=== PATIENT | female | born 1960 | race African-American/Black ===

== ENCOUNTER 2018-05-22 10:41 | Emergency (ER) | payer MEDICAID ==
[~2018-05-22] VITALS: Ht 177.8 cm; Wt 88.0 kg
[2018-05-22 13:05] LABS: BASOPHILS % 0.6 % (0.0-2.0); EOSINOPHILS % 0.4 % (0.0-5.0); HEMATOCRIT. 37.2 % (36.0-48.0); HEMOGLOBIN. 12.2 g/dL (12.0-16.0); LYMPHOCYTES % 30.9 % (20.0-50.0); MEAN CORPUSCULAR HEMOGLOBIN 29.5 pg (28.0-32.0); MEAN CORPUSCULAR VOLUME 89.9 fL (81.0-99.0); MONOCYTES % 4.7 % (2.0-8.0); NEUTROPHILS % 63.4 % (40.0-76.0); PLATELET 319 x1000/uL (130-400); RED BLOOD CELL COUNT 4.14 mill/uL (4.2-5.4)
[2018-05-22 13:16] LABS: INR 1.7; PARTIAL THROMBOPLASTIN TIME 30.6 sec (23.4-31.0); PROTHROMBIN TIME 16.6 sec (9.1-11.1)
[2018-05-22 13:26] LABS: CHLORIDE 104 mEq/L (98-107)
[2018-05-22 14:47] VITALS: BP 139/67
== END 2018-05-22 15:06 | disposition home or self-care (01) ==
LOC: ER 11:35
DX: R25.2 Cramp and spasm (principal); E11.9 Type 2 diabetes mellitus without complications; I48.91 Unspecified atrial fibrillation; R94.31 Abnormal electrocardiogram [ECG] [EKG]; I11.9 Hypertensive heart disease without heart failure; Z79.01 Long term (current) use of anticoagulants; Z86.73 Personal history of transient ischemic attack (TIA), and cerebral infarction without residual deficits
CPT/HCPCS: 36415; 80053; 83735; 85025; 85610; 85730; 93005; 93970; 99285; Z7610